=== PATIENT | male | born 1985 | race Two or more races ===

== ENCOUNTER 2016-11-07 20:23 | Emergency (ER) | payer SELFPAY ==
[~2016-11-07] VITALS: Ht 162.6 cm; Wt 70.3 kg
[2016-11-07 20:37] VITALS: BP 138/78
[2016-11-07] MEDS ORDERED: IBUPROFEN 600 MG TABLET PO ONE ×2 (20:56→21:00)
== END 2016-11-07 21:02 | disposition home or self-care (01) ==
LOC: ER 20:29
DX: S39.012A Strain of muscle, fascia and tendon of lower back, initial encounter (principal); S16.1XXA Strain of muscle, fascia and tendon at neck level, initial encounter; M62.830 Muscle spasm of back; V43.52XA Car driver injured in collision with other type car in traffic accident, initial encounter; Y93.89 Activity, other specified; Y92.89 Other specified places as the place of occurrence of the external cause; Y99.9 Unspecified external cause status
CPT/HCPCS: A4606; Z7610